=== PATIENT | female | born 1970 | race Caucasian/White ===

== ENCOUNTER → 2019-03-14 10:03 | Outpatient (CLI) | payer OTHER, SELFPAY ==
--- NOTE | 2019-03-14 | DI.RAD.S_ITS ---
PROCEDURE: XR FOOT RT MIN 3V INDICATIONS: RIGHT FOOT PAIN TECHNIQUE: 3 views of the foot were acquired. COMPARISON: [facility], , FOOT 3V RIGHT, 04/02/2011, 10:37. FINDINGS: Bones: There is a transverse fracture in the proximal fourth metatarsal shaft without displacement or angulation. No suspicious bony lesions. Old proximal left fifth metacarpal fracture with deformity. There is calcaneal spurring. Soft tissues: No tibiotalar joint effusion. Achilles tendon appears normal. IMPRESSION: 1. A transverse fracture in the proximal fourth metatarsal shaft. The fracture may be subacute given the appearance of callus formation. 2. Old proximal left metatarsal fracture/deformity. Dictated by: Sterling Dunn M.D. on 03/14/2019 at 10:54 Approved by: Sterling Dunn M.D. on 03/14/2019 at 11:05
== END ==
PROVIDERS: PCP Student in an Organized Health Care Education/Training Program; Visit Provider Internal Medicine
DX: S92.341A Displaced fracture of fourth metatarsal bone, right foot, initial encounter for closed fracture (principal); M79.671 Pain in right foot
CPT/HCPCS: 73630

== ENCOUNTER → 2021-05-16 12:10 | Outpatient (ROUT) | payer OTHER, SELFPAY ==
[2021-05-16 12:43] LABS: D Dimer 302 ng/mL (<230)
== END ==
PROVIDERS: PCP Student in an Organized Health Care Education/Training Program; Visit Provider Student in an Organized Health Care Education/Training Program
DX: R42 Dizziness and giddiness (principal); R06.00 Dyspnea, unspecified
CPT/HCPCS: 85379

== ENCOUNTER → 2021-05-16 12:20 | Outpatient (CLI) | payer OTHER, SELFPAY ==
--- NOTE | 2021-05-16 | DI.RAD.S_ITS ---
PROCEDURE: XR CHEST 2V INDICATIONS: Dizziness and giddiness TECHNIQUE: 2 views of the chest were acquired. COMPARISON: [facility], CR, XR CHEST 1 VIEW, 04/14/2021, 22:08. FINDINGS: Surgical changes and devices: Left breast surgical clips. Lungs and pleura: Lungs are clear. No pleural effusions or pneumothorax. Mediastinum: Mediastinal contours are normal. Heart size is normal. Bones and chest wall: No suspicious bony abnormalities. Soft tissues appear unremarkable. IMPRESSION: Overall, bilateral airspace opacities have significantly improved from the comparison study. There is residual/recurrent small focus of airspace opacity in the right lateral mid lung. This may be infectious. Dictated by: Tim Laguerre M.D. on 05/16/2021 at 12:41 Approved by: Tim Laguerre M.D. on 05/16/2021 at 12:57
== END ==
PROVIDERS: PCP Student in an Organized Health Care Education/Training Program; Referring Provider Student in an Organized Health Care Education/Training Program; Visit Provider Student in an Organized Health Care Education/Training Program
DX: R42 Dizziness and giddiness (principal); R06.00 Dyspnea, unspecified
CPT/HCPCS: 71046; 85379